=== PATIENT | female | born 1980 | race Two or more races ===

== ENCOUNTER 2019-10-31 22:26 | Emergency (ER) | payer SELFPAY ==
[~2019-10-31] VITALS: Ht 165.1 cm; Wt 90.7 kg
[2019-10-31 22:54] LABS: APPEARANCE,URINE CLEAR; BASOPHILS % (AUTO) 0.6 % (0.0-2.0); BILIRUBIN, URINE NEGATIVE (NEGATIVE); EOSINOPHILS % (AUTO) 0.2 % (0.0-3.0); GLUCOSE, URINE (UA) NEGATIVE (NEGATIVE); HEMATOCRIT 36.4 % (37.0-47.0); HEMOGLOBIN 12.2 G/DL (12.0-16.0); KETONES,URINE 1+ (NEGATIVE); LEUKOCYTE ESTERASE ,URINE NEGATIVE (NEGATIVE); LYMPHOCYTES % (AUTO) 31.6 % (20.0-45.0); MEAN CORPUSCULAR VOLUME 88 FL (80-99); MONOCYTES % (AUTO) 6.3 % (1.0-10.0); NEUTROPHILS % (AUTO) 61.3 % (45.0-75.0); NITRITE,URINE NEGATIVE (NEGATIVE); PH,URINE 6 (4.5-8.0); PLATELET COUNT 318 K/UL (150-450); PROTEIN,URINE 1+ (NEGATIVE); RED BLOOD COUNT 4.15 M/UL (4.20-5.40); RED CELL DISTRIBUTION WIDTH 11.4 % (11.6-14.8); UROBILINOGEN,URINE NORMAL MG/DL (0.0-1.0); WHITE BLOOD COUNT 9.7 K/UL (4.8-10.8)
[2019-10-31 22:56] LABS: COLOR,URINE YELLOW
[2019-10-31 23:05] LABS: ANION GAP 11 mmol/L (5-15); BLOOD UREA NITROGEN 9 mg/dL (7-18); CALCIUM 9.2 MG/DL (8.5-10.1); CARBON DIOXIDE 27 MMOL/L (21-32); CHLORIDE 102 MMOL/L (98-107); CREATININE 1.1 MG/DL (0.55-1.30); POTASSIUM 3.1 MMOL/L (3.5-5.1); SODIUM 140 MMOL/L (136-145)
[2019-10-31 23:09] LABS: ALANINE AMINOTRANSFERASE 84 U/L (12-78); ALBUMIN 4.3 G/DL (3.4-5.0); ALBUMIN/GLOBULIN RATIO 1.1 (1.0-2.7); ALKALINE PHOSPHATASE 72 U/L (46-116); ASPARTATE AMINO TRANSFERASE 28 U/L (15-37); BILIRUBIN,TOTAL 0.7 MG/DL (0.2-1.0)
[2019-10-31 23:12] VITALS: BP 134/78
--- NOTE | 2019-10-31 23:23 | Emergency Room Report ---
History of Present Illness General Chief Complaint: Behavioral Complaint Source: Medical Record, EMS Present Illness HPI This a 38-year-old female with unknown past medical history. She is was brought in by EMS with police escort because of bizarre behavior. Initially police was called because she was wandering in the street. Her neighbor called 911. When they got there she was complaining shortness of breath and was retching. Afterward she was just talking make any sense and was walking down the street. When the chief merchandising officer told me that she reported that somebody injected with heroin. Later on she denied it. She became combative and not respond to any command. They brought her here for evaluation. She would not talk to [place] nursing staff or to myself. She would however track my movement. Allergies: Coded Allergies: UNABLE TO ASSESS (Unverified , 10/31/19) COVID-19 Screening COVID-19 risk:Contact w/high r: No Has patient experienced hurt: No COVID-19 Testing performed BLOWER BLAST FURNACE: No Patient History Past Medical History: see triage record, old chart reviewed, unable to obtain Past Surgical History: unable to obtain Family History: unable to obtain Last Menstrual Period: UNK Now: No Immunizations: other Reviewed Nursing Documentation: PMH: Agreed; PSxH: Agreed Nursing Documentation-PMH Past Medical History Deferred: Pt Cognitively Impaired Past Medical History: Deferred Review of Systems All Other Systems: limited - Patient is not cooperative Physical Exam Vital Signs Date Time Temp Pulse Resp B/P (MAP) Pulse Ox O2 Delivery O2 Flow Rate FiO2 10/31/19 22:30 98.1 114 16 134/78 (96) 98 Room Air Vitals with tachycardia Sp02 EP Interpretation: reviewed, normal General Appearance: alert/responsive, no apparent distress, non-toxic Head: normocephalic, atraumatic Eyes: PERRL, EOMI ENT: oropharynx normal Neck: supple/symm/no masses Respiratory: effort normal, no rhonchi, no wheezing Cardiovascular: no murmur, gallop, rub Gastrointestinal: non-tender, no mass, non-distended, no rebound/guarding, normal bowel sounds Neurologic: sensory intact, motor strength/tone normal Psychiatric: other - Flat affect. Not answering any question. Skin: no rash, normal palpation Medical Decision Making Diagnostic Impression: Primary Impression: Psychosis Qualified Codes: F23 - Brief psychotic disorder Additional Impression: Behavioral disorder ER Course Patient presents with acute psychosis. She told the nurse that she did some cocaine earlier. Toxin was negative however. Initially she refused to talk but she was able to look at me and follow-up simple commands by the nursing staff. After about an hour, she started talking. She denies any suicidal thoughts homicidal thought. I suspect that there is some underlying psychosis. This patient is a chronic risk of self injury due to poor impulse control, limited coping skills, and judgment intermittently impaired by intoxication. I believe that the available clinical evidence to suggest that these characteristics derived primarily from personality disorder and are likely very stable over time. Hospitalization would likely attenuate risk of self-harm only during prison period, without lasting risk reduction. Serious self-harm , while possible, would likely be inadvertent, and because of impulsivity, and foreseeable. For these reasons, I do not believe hospitalization would provide meaningful reduction in risk of self-harm. Last Vital Signs Date Time Temp Pulse Resp B/P (MAP) Pulse Ox O2 Delivery O2 Flow Rate FiO2 10/31/19 23:12 98.1 98 16 134/78 98 Room Air Status: improved Disposition: HOME, SELF-CARE Condition: Stable Scripts Olanzapine* (ZYPREXA*) 5 Mg Tablet 5 MG ORAL DAILY, #30 TAB Prov: Dheeraj Merino MD 11/01/19 Referrals: NOT CHOSEN IPA/,REFERRING (PCP) Patient Instructions: Self-Destructive Behavior Additional Instructions: Abstain from drug use. Follow-up with rehab within a week. Return if symptoms worsen. Dheeraj Merino MD Oct 31, 2019 23:23
[2019-11-01 01:30] VITALS: BP 128/70
[2019-11-01] MEDS ORDERED: ZYPREXA5 MG ORAL (02:37)
[2019-11-01 03:24] VITALS: BP 126/72
[2019-11-01 06:00] VITALS: BP 120/70
== END 2019-11-01 06:00 | disposition home or self-care (01) ==
LOC: EDBD 22:26 → EMR 22:35
DX: F23 Brief psychotic disorder (principal); R46.2 Strange and inexplicable behavior
CPT/HCPCS: 36415; 80053; 80307; 81003; 81025; 85025; 99284; G0480